=== PATIENT | female | born 1965 | race Caucasian/White ===

== ENCOUNTER → 2018-03-17 | Outpatient (CLI) | payer OTHER ==
[~2018-03-17] MED LIST: ASPI-621 PO; CHOL100011 PO; CYAN1TAB29 PO; MULT-257 PO
== END | disposition home or self-care (01) ==
LOC: CFH 15:21 → EDSTATUS 15:45
PROVIDERS: ATTEND Family Medicine
DX: Z12.31 Encounter for screening mammogram for malignant neoplasm of breast (principal)
CPT/HCPCS: 77063; 77067